=== PATIENT | male | born 1945 | race African-American/Black ===

== ENCOUNTER 2017-10-19 10:44 | Inpatient (IN) ==
[2017-10-19 11:27] LABS: Basophils # 0.1 10*3/uL (0.0-0.2); Basophils % 2.2 % (0.0-0.8); Eosinophils # 0.1 10*3/uL (0.0-0.87); Eosinophils % 4.5 % (0.00-10.9); Hematocrit 39.5 VOL% (42.0-52.0); Hemoglobin 12.2 GM/DL (14.0-18.0); Immature Granulocytes % 0.4 %; Immature Granulocytes Absolute 0.01 #; Lymphocytes # 0.5 10*3/uL (1.4-4.0); Lymphocytes % 17.2 % (21.2-54.2); Mean Corpuscular HGB Conc 30.9 GM/DL (32-36); Mean Corpuscular Hemoglobin 27 PG (27-34); Mean Corpuscular Volume 87.8 FL (87-102); Mean Platelet Volume 9.4 FL (9.6-12.0); Monocytes # 0.3 10*3/uL (0.11-0.8); Neutrophils # 1.7 10*3/uL (1.4-7.4); Neutrophils % 63.7 % (38.7-73.9); Platelet Count 178 T/CUMM (130-400); Red Cell Distribution Width 14.1 % (9.3-17.3); White Blood Count 2.7 T/CUMM (4-12)
[2017-10-19 11:38] LABS: INR 1.2; PT Patient Result 12.1 SECS; Partial Thromboplastin Time 32.2 SECS (0-40)
[2017-10-19 11:45] LABS: Alanine Aminotransferase 10 U/L (16-61); Albumin 2.1 G/DL (3.4-5.0); Alkaline Phosphatase 166 U/L (45-117); Aspartate Amino Transferase 21 U/L (0-37); Blood Urea Nitrogen 27 MG/DL (7-18); Calcium 8.7 MG/DL (8.5-10.1); Glucose 93 MG/DL (74-106); Osmolality,Calculated 270.4 MOS/KG (273-304); Potassium 5.6 MMOL/L (3.5-5.1); Sodium 133 MMOL/L (136-145); Total Protein 9.2 G/DL (6.4-8.3); Troponin I Only 0.015 NG/ML (0.00-0.045)
[2017-10-19] MEDS ORDERED: ALBUTEROL/IPRATROPIUM 3 ML NEB RESP TX STA (12:29)
[2017-10-19] MEDS ORDERED: LEVOFLOXACIN INJ 750 MG in PREMIX 1 EACH IV STA (12:29)
[2017-10-19] MEDS ORDERED: LEVOFLOXACIN INJ 150 ML IV ONE (13:00)
[2017-10-19] MEDS ORDERED: ACETAMINOPHEN 325 MG TABLET PO PRN (13:37)
[2017-10-19] MEDS ORDERED: DOCUSATE SODIUM 100 MG CAPSULE PO PRN (13:37)
[2017-10-19] MEDS ORDERED: ONDANSETRON 4 MG/2 ML VIAL IV PRN (13:37)
[2017-10-19] MEDS ORDERED: MORPHINE 4 MG/1 ML VIAL IV PRN (13:37)
[2017-10-19] MEDS ORDERED: LACTULOSE 20 GM/30 ML UDCUP PO PRN (13:37)
[2017-10-19] MEDS ORDERED: DEXTROSE 50% 25 GM/50 ML VIAL IV PRN (13:44)
[2017-10-19] MEDS ORDERED: GLUCAGON 1 MG VIAL IM PRN (13:44)
[2017-10-19] MEDS ORDERED: MAGNESIUM SULF RIDER 2 GM in PREMIX 1 EACH IV PRN (13:44)
[2017-10-19] MEDS ORDERED: MAGNESIUM SULF RIDER 4 GM in PREMIX 1 EACH IV PRN (13:44)
[2017-10-19] MEDS ORDERED: POTASSIUM CHLORIDE 20 MEQ/15 ML UDCUP PER TUBE PRN (13:44)
[2017-10-19 14:14] LABS: Thyroid Stimulating Hormone 11.5 uIU/ml (0.358-3.74)
[2017-10-19] MEDS: FUROSEMIDE 40 MG/4 ML VIAL IV SCH (16:01)
[2017-10-19] MEDS: INSULIN LISPRO 100 UNIT/ML SUBCUT SCH ×2 (17:45→21:27)
[2017-10-19] MEDS: CARVEDILOL 3.125 MG TABLET PO SCH (21:27)
[2017-10-20 04:47] LABS: Basophils % 1.7 % (0.0-0.8); Eosinophils # 0.1 10*3/uL (0.0-0.87); Eosinophils % 5.5 % (0.00-10.9); Hematocrit 37.2 VOL% (42.0-52.0); Hemoglobin 11.4 GM/DL (14.0-18.0); Immature Granulocytes % 0.4 %; Immature Granulocytes Absolute 0.01 #; Lymphocytes # 0.3 10*3/uL (1.4-4.0); Mean Corpuscular HGB Conc 30.6 GM/DL (32-36); Mean Corpuscular Hemoglobin 27 PG (27-34); Mean Corpuscular Volume 88.2 FL (87-102); Monocytes # 0.3 10*3/uL (0.11-0.8); Monocytes % 11.9 % (1.7-12.7); Neutrophils # 1.6 10*3/uL (1.4-7.4); Neutrophils % 66.5 % (38.7-73.9); Platelet Count 173 T/CUMM (130-400); Red Blood Count 4.22 MC/CUMM (3.8-5.5); Red Cell Distribution Width 13.9 % (9.3-17.3); White Blood Count 2.4 T/CUMM (4-12)
[2017-10-20 05:35] LABS: Calcium 8.4 MG/DL (8.5-10.1); Potassium 5.3 MMOL/L (3.5-5.1)
[2017-10-20] MEDS: INSULIN LISPRO 100 UNIT/ML SUBCUT SCH ×4 (09:02→21:01)
[2017-10-20] MEDS: FUROSEMIDE 40 MG/4 ML VIAL IV SCH ×2 (10:22→15:20)
[2017-10-20] MEDS: PANTOPRAZOLE 40 MG TABLET PO SCH (10:22)
[2017-10-20] MEDS: CARVEDILOL 3.125 MG TABLET PO SCH ×2 (10:27→21:13)
[2017-10-20] MEDS: LISINOPRIL 5 MG TABLET PO SCH (10:27)
[2017-10-20] MEDS: POLYVINYL ALCOHOL 1.4% OPH SOLN 15 ML BOTTLE BOTH EYES SCH (10:29)
[2017-10-20 22:37] LABS: Apearance,Urine CLEAR (Clear); Bilirubin,Urine Negative (Negative); Blood, Urine Small mg/dL (Negative); Glucose,Urine (UA) Negative (Negative); Hyaline Casts,Urine 7 /LPF (0-3); Ketones,Urine Negative (Negative); Nitrite,Urine Negative (Negative); Protein,Urine Negative; RBC,Urine 1 /HPF (0-4); Urine Color Straw (Yellow); Urine Specific Gravity 1.005 (1.001-1.035); Urine Urobilinogen < 2.0 EU/DL (0.2-1.0)
[2017-10-21 05:31] LABS: Basophils % 0.9 % (0.0-0.8); Eosinophils # 0.1 10*3/uL (0.0-0.87); Eosinophils % 2.9 % (0.00-10.9); Hematocrit 37.7 VOL% (42.0-52.0); Hemoglobin 12.2 GM/DL (14.0-18.0); Immature Granulocytes % 0.3 %; Immature Granulocytes Absolute 0.01 #; Lymphocytes # 0.7 10*3/uL (1.4-4.0); Lymphocytes % 19.2 % (21.2-54.2); Mean Corpuscular HGB Conc 32.4 GM/DL (32-36); Mean Corpuscular Hemoglobin 27 PG (27-34); Mean Corpuscular Volume 84.2 FL (87-102); Mean Platelet Volume 9.3 FL (9.6-12.0); Monocytes # 0.5 10*3/uL (0.11-0.8); Monocytes % 12.9 % (1.7-12.7); Neutrophils # 2.2 10*3/uL (1.4-7.4); Neutrophils % 63.8 % (38.7-73.9); Platelet Count 185 T/CUMM (130-400); Red Blood Count 4.48 MC/CUMM (3.8-5.5); Red Cell Distribution Width 13.7 % (9.3-17.3); White Blood Count 3.5 T/CUMM (4-12)
[2017-10-21 06:02] LABS: Calcium 8.1 MG/DL (8.5-10.1); Osmolality,Calculated 273.1 MOS/KG (273-304); Potassium 4.3 MMOL/L (3.5-5.1)
[2017-10-21] MEDS ORDERED: ALBUTEROL/IPRATROPIUM 3 ML NEB RESP TX PRN (07:22)
[2017-10-21] MEDS: INSULIN LISPRO 100 UNIT/ML SUBCUT SCH ×4 (07:58→20:15)
[2017-10-21] MEDS ORDERED: LEVOFLOXACIN INJ 500 MG in PREMIX 1 EACH IV ONE (08:00)
[2017-10-21] MEDS: FUROSEMIDE 40 MG/4 ML VIAL IV SCH ×2 (10:13→16:10)
[2017-10-21] MEDS: POLYVINYL ALCOHOL 1.4% OPH SOLN 15 ML BOTTLE BOTH EYES SCH (10:16)
[2017-10-21] MEDS: PANTOPRAZOLE 40 MG TABLET PO SCH (10:16)
[2017-10-21] MEDS: LISINOPRIL 5 MG TABLET PO SCH (11:18)
[2017-10-21] MEDS: CARVEDILOL 3.125 MG TABLET PO SCH ×2 (11:18→20:15)
[2017-10-22 05:07] LABS: Basophils % 1.1 % (0.0-0.8); Eosinophils # 0.1 10*3/uL (0.0-0.87); Eosinophils % 3.2 % (0.00-10.9); Hematocrit 36.6 VOL% (42.0-52.0); Hemoglobin 11.7 GM/DL (14.0-18.0); Immature Granulocytes % 0.4 %; Immature Granulocytes Absolute 0.01 #; Lymphocytes # 0.5 10*3/uL (1.4-4.0); Lymphocytes % 18.8 % (21.2-54.2); Mean Corpuscular Hemoglobin 27 PG (27-34); Mean Corpuscular Volume 84.9 FL (87-102); Monocytes # 0.3 10*3/uL (0.11-0.8); Monocytes % 10.6 % (1.7-12.7); Neutrophils # 1.9 10*3/uL (1.4-7.4); Neutrophils % 65.9 % (38.7-73.9); Platelet Count 169 T/CUMM (130-400); Red Blood Count 4.31 MC/CUMM (3.8-5.5); Red Cell Distribution Width 13.8 % (9.3-17.3); White Blood Count 2.8 T/CUMM (4-12)
[2017-10-22 05:36] LABS: Calcium 8.3 MG/DL (8.5-10.1); Osmolality,Calculated 273.4 MOS/KG (273-304); Potassium 4.4 MMOL/L (3.5-5.1)
[2017-10-22] MEDS: FUROSEMIDE 40 MG/4 ML VIAL IV SCH (09:22)
[2017-10-22] MEDS: PANTOPRAZOLE 40 MG TABLET PO SCH (09:22)
[2017-10-22] MEDS: INSULIN LISPRO 100 UNIT/ML SUBCUT SCH ×4 (09:25→21:07)
[2017-10-22] MEDS: LEVOFLOXACIN INJ 250 MG in PREMIX 1 EACH IV SCH (09:26)
[2017-10-22] MEDS: CARVEDILOL 3.125 MG TABLET PO SCH ×2 (09:33→21:10)
[2017-10-22] MEDS: LISINOPRIL 5 MG TABLET PO SCH (09:33)
[2017-10-22] MEDS: POLYVINYL ALCOHOL 1.4% OPH SOLN 15 ML BOTTLE BOTH EYES SCH (09:35)
[2017-10-22] MEDS: FUROSEMIDE 40 MG TABLET PO SCH (15:53)
[2017-10-23 05:20] LABS: Osmolality,Calculated 272.4 MOS/KG (273-304); Potassium 4.1 MMOL/L (3.5-5.1)
[2017-10-23] MEDS: LEVOFLOXACIN INJ 250 MG in PREMIX 1 EACH IV SCH (08:31)
[2017-10-23] MEDS: PANTOPRAZOLE 40 MG TABLET PO SCH (08:31)
[2017-10-23] MEDS: FUROSEMIDE 40 MG TABLET PO SCH (08:32)
[2017-10-23] MEDS: INSULIN LISPRO 100 UNIT/ML SUBCUT SCH ×4 (08:32→21:15)
[2017-10-23] MEDS: POLYVINYL ALCOHOL 1.4% OPH SOLN 15 ML BOTTLE BOTH EYES SCH (08:36)
[2017-10-23] MEDS: LISINOPRIL 5 MG TABLET PO SCH (09:56)
[2017-10-23] MEDS: CARVEDILOL 3.125 MG TABLET PO SCH ×2 (09:56→21:13)
[2017-10-24 07:22] LABS: Calcium 8.1 MG/DL (8.5-10.1); Osmolality,Calculated 275.2 MOS/KG (273-304); Potassium 4.2 MMOL/L (3.5-5.1)
[2017-10-24] MEDS: INSULIN LISPRO 100 UNIT/ML SUBCUT SCH ×4 (08:10→20:46)
[2017-10-24] MEDS: PANTOPRAZOLE 40 MG TABLET PO SCH (08:59)
[2017-10-24] MEDS: LEVOFLOXACIN 250 MG TABLET PO SCH (08:59)
[2017-10-24] MEDS: CARVEDILOL 3.125 MG TABLET PO SCH ×2 (09:50→20:27)
[2017-10-24] MEDS: LISINOPRIL 2.5 MG TABLET PO SCH (09:50)
[2017-10-24] MEDS: POLYVINYL ALCOHOL 1.4% OPH SOLN 15 ML BOTTLE BOTH EYES SCH (10:08)
[2017-10-24] MEDS: FUROSEMIDE 40 MG TABLET PO SCH (16:25)
[2017-10-25] MEDS: INSULIN LISPRO 100 UNIT/ML SUBCUT SCH ×4 (07:54→21:26)
[2017-10-25] MEDS: FUROSEMIDE 40 MG TABLET PO SCH ×2 (09:12→16:56)
[2017-10-25] MEDS: LEVOFLOXACIN 250 MG TABLET PO SCH (09:13)
[2017-10-25] MEDS: POLYVINYL ALCOHOL 1.4% OPH SOLN 15 ML BOTTLE BOTH EYES SCH (09:13)
[2017-10-25] MEDS: CARVEDILOL 3.125 MG TABLET PO SCH ×2 (09:13→21:26)
[2017-10-25] MEDS: PANTOPRAZOLE 40 MG TABLET PO SCH (09:13)
[2017-10-25] MEDS: LISINOPRIL 2.5 MG TABLET PO SCH (09:27)
[2017-10-25 11:03] LABS: Basophils # 0.1 10*3/uL (0.0-0.2); Basophils % 1.2 % (0.0-0.8); Eosinophils # 0.1 10*3/uL (0.0-0.87); Eosinophils % 2.2 % (0.00-10.9); Hematocrit 40.3 VOL% (42.0-52.0); Hemoglobin 12.5 GM/DL (14.0-18.0); Immature Granulocytes % 0.2 %; Immature Granulocytes Absolute 0.01 #; Lymphocytes # 0.4 10*3/uL (1.4-4.0); Lymphocytes % 8.6 % (21.2-54.2); Mean Corpuscular Hemoglobin 27 PG (27-34); Mean Platelet Volume 10.1 FL (9.6-12.0); Monocytes # 0.5 10*3/uL (0.11-0.8); Monocytes % 11.5 % (1.7-12.7); Neutrophils # 3.2 10*3/uL (1.4-7.4); Neutrophils % 76.3 % (38.7-73.9); Platelet Count 181 T/CUMM (130-400); Red Blood Count 4.63 MC/CUMM (3.8-5.5); Red Cell Distribution Width 13.9 % (9.3-17.3); White Blood Count 4.2 T/CUMM (4-12)
[2017-10-25 11:43] LABS: Bilirubin,Total 0.8 MG/DL (0.2-1.0); Osmolality,Calculated 276.7 MOS/KG (273-304); Potassium 4.6 MMOL/L (3.5-5.1); Total Protein 8.3 G/DL (6.4-8.3)
[2017-10-26] MEDS: INSULIN LISPRO 100 UNIT/ML SUBCUT SCH (07:44)
[2017-10-26 08:03] VITALS: BP 92/56
[2017-10-26] MEDS: CARVEDILOL 3.125 MG TABLET PO SCH (09:39)
[2017-10-26] MEDS: FUROSEMIDE 40 MG TABLET PO SCH (09:40)
[2017-10-26] MEDS: LEVOFLOXACIN 250 MG TABLET PO SCH (09:40)
[2017-10-26] MEDS: PANTOPRAZOLE 40 MG TABLET PO SCH (09:40)
[2017-10-26] MEDS: POLYVINYL ALCOHOL 1.4% OPH SOLN 15 ML BOTTLE BOTH EYES SCH (09:41)
[2017-10-26] MEDS: LISINOPRIL 2.5 MG TABLET PO SCH (09:46)
== END 2017-10-26 10:53 | disposition swing bed (61) | DRG 291 ==
LOC: EDBD → EDUNIT# → N.ED 10:44 → SUATTDRO 12:33 → N.EDINP 12:33 → N.4E 14:35
PROVIDERS: ADMIT Internal Medicine Nephrology; ATTEND Family Medicine

== ENCOUNTER 2017-12-12 10:50 | Inpatient (IN) ==
[2017-12-12] MEDS ORDERED: SODIUM CHLORIDE 0.9% 1,000 ML IV STA (10:59)
[2017-12-12] MEDS: DOPamine 800 MG/250 ML PREMIX IV PRN (11:04)
[2017-12-12 11:25] LABS: Basophils % 0.4 % (0.0-0.8); Eosinophils # 0.1 10*3/uL (0.0-0.87); Eosinophils % 0.8 % (0.00-10.9); Hematocrit 38.3 VOL% (42.0-52.0); Hemoglobin 11.9 GM/DL (14.0-18.0); Immature Granulocytes % 0.5 %; Immature Granulocytes Absolute 0.04 #; Lymphocytes # 3.3 10*3/uL (1.4-4.0); Lymphocytes % 41.9 % (21.2-54.2); Mean Corpuscular HGB Conc 31.1 GM/DL (32-36); Mean Corpuscular Hemoglobin 28 PG (27-34); Mean Corpuscular Volume 89.9 FL (87-102); Mean Platelet Volume 10.1 FL (9.6-12.0); Monocytes % 12.1 % (1.7-12.7); Neutrophils # 3.5 10*3/uL (1.4-7.4); Neutrophils % 44.3 % (38.7-73.9); Platelet Count 201 T/CUMM (130-400); Red Blood Count 4.26 MC/CUMM (3.8-5.5); Red Cell Distribution Width 14.5 % (9.3-17.3); White Blood Count 7.9 T/CUMM (4-12)
[2017-12-12 11:31] LABS: INR 1.2; PT Patient Result 12.9 SECS; Partial Thromboplastin Time 33.8 SECS (0-40)
[2017-12-12] MEDS ORDERED: NOREPINEPHRINE 4 MG/4 ML VIAL IV ONE (11:47)
[2017-12-12] MEDS ORDERED: DOBUTamine 500 MG/250 ML PREMIX IV ONE (11:47)
[2017-12-12] MEDS ORDERED: HEPARIN/NACL 0.9% 2 UNITS/ML 1,000 ML IV ONE (11:47)
[2017-12-12 11:55] LABS: Alanine Aminotransferase 35 U/L (16-61); Albumin 2.1 G/DL (3.4-5.0); Alkaline Phosphatase 137 U/L (45-117); Aspartate Amino Transferase 80 U/L (0-37); Blood Urea Nitrogen 87 MG/DL (7-18); Calcium 9.2 MG/DL (8.5-10.1); Glucose 113 MG/DL (74-106); Osmolality,Calculated 289.7 MOS/KG (273-304); Sodium 131 MMOL/L (136-145); Total Protein 8.9 G/DL (6.4-8.3); Troponin I Only 0.099 NG/ML (0.00-0.045)
[2017-12-12 11:57] LABS: Potassium > 8.0 MMOL/L (3.5-5.1)
[2017-12-12] MEDS ORDERED: INSULIN REGULAR 100 UNIT/ML ONE (12:01)
[2017-12-12] MEDS: DOBUTamine 500 MG/250 ML PREMIX IV PRN ×2 (12:39→21:40)
[2017-12-12] MEDS: NOREPINEPHRINE 8 MG in SODIUM CHLORIDE 0.9% 242 ML IV PRN ×3 (12:40→23:05)
[2017-12-12] MEDS: SODIUM CHLORIDE 0.9% 1,000 ML IV SCH ×2 (12:41→21:39)
[2017-12-12 12:53] LABS: Total Protein 8.5 G/DL (6.4-8.3)
[2017-12-12] MEDS ORDERED: HEPARIN/NACL 0.9% 2 UNITS/ML 500 ML IV ONE (12:55)
[2017-12-12] MEDS ORDERED: ALBUTEROL 2.5 MG/3 ML NEB RESP TX PRN (13:49)
[2017-12-12] MEDS: LORazepam 2 MG/1 ML VIAL IV PRN ×2 (21:11→23:04)
[2017-12-13] MEDS: DOPamine 800 MG/250 ML PREMIX IV PRN (01:17)
[2017-12-13 02:57] LABS: Basophils % 0.2 % (0.0-0.8); Eosinophils % 0.5 % (0.00-10.9); Hemoglobin 10.9 GM/DL (14.0-18.0); Immature Granulocytes % 0.2 %; Immature Granulocytes Absolute 0.02 #; Lymphocytes # 0.3 10*3/uL (1.4-4.0); Lymphocytes % 3.8 % (21.2-54.2); Mean Corpuscular HGB Conc 32.1 GM/DL (32-36); Mean Corpuscular Hemoglobin 28 PG (27-34); Mean Corpuscular Volume 86.7 FL (87-102); Monocytes # 0.5 10*3/uL (0.11-0.8); Monocytes % 6.4 % (1.7-12.7); Neutrophils # 7.3 10*3/uL (1.4-7.4); Neutrophils % 88.9 % (38.7-73.9); Platelet Count 199 T/CUMM (130-400); Red Blood Count 3.92 MC/CUMM (3.8-5.5); Red Cell Distribution Width 14.2 % (9.3-17.3); White Blood Count 8.2 T/CUMM (4-12)
[2017-12-13] MEDS: NOREPINEPHRINE 8 MG in SODIUM CHLORIDE 0.9% 242 ML IV PRN ×3 (02:58→09:52)
[2017-12-13 03:03] LABS: ABG Base Excess -3.7 MMOL/L (-2.5-2.5); ABG HCO3 21.4 MMOL/L (20-26); ABG PCO2 38.8 MM HG (35-48); ABG PH 7.352 (7.35-7.45); ABG TCO2 19.6 MMOL/L (23-27)
[2017-12-13 03:23] LABS: Band Neutrophils 9 % (0-10); Eosinophils 1 % (0-10); Lymphocytes 3 % (20-55); Metamyelocytes 2 %; Segmented Neutrophils 81 % (50-85)
[2017-12-13 03:24] LABS: Burr Cells 1+; Platelet Estimate Normal
[2017-12-13 03:25] LABS: Hypochromasia Slight
[2017-12-13 03:26] LABS: Total Cells Counted 100
[2017-12-13 03:42] LABS: CKMB % 5.4 %; Calcium 7.2 MG/DL (8.5-10.1); Osmolality,Calculated 296.1 MOS/KG (273-304)
[2017-12-13 03:44] LABS: Potassium 6.5 MMOL/L (3.5-5.1); Troponin I Only 2.1 NG/ML (0.00-0.045)
[2017-12-13] MEDS: DOBUTamine 500 MG/250 ML PREMIX IV PRN (06:30)
[2017-12-13] MEDS: SODIUM CHLORIDE 0.9% 1,000 ML IV SCH ×2 (06:31→15:24)
[2017-12-13 09:20] LABS: Albumin (SPE) 2.5 G/DL (3.2-5.3); Albumin (SPE) Rel % 29.9 %; Alpha 1 (SPE) 0.3 G/DL (0.1-0.4); Alpha 1 (SPE) Rel % 4.1 %; Alpha 2 (SPE) Rel % 11.8 %; Beta (SPE) 0.9 G/DL (0.5-1.1); Beta (SPE) Rel % 11.2 %; Gamma (SPE) 3.7 G/DL (0.7-1.7); Total Protein (Chem) 8.5 G/DL (6.4-8.3)
[2017-12-13 09:35] LABS: Immunoglobulin A (Chem) 954 MG/DL (70-400); Immunoglobulin G (Chem) 2880 MG/DL (700-1600); Immunoglobulin M (Chem) 138 MG/DL (40-230)
[2017-12-13 14:45] VITALS: BP 71/30
== END 2017-12-13 14:50 | disposition expired ==
LOC: EDBD → EDUNIT# → N.ED 10:50 → N.ICU 11:10 → INTOOBSV 12:03 → N.ICU 12:51
PROVIDERS: ADMIT Internal Medicine; ATTEND Internal Medicine
PROC: CLCCHCL (ICD-10-PCS; 2017-12-12 12:45)